=== PATIENT | female | born 1980 | race Caucasian/White ===

== ENCOUNTER 2017-09-02 08:01 | Day surgery (SDC) | payer OTHER ==
[2017-08-26 11:00] LABS: HEMATOCRIT 41.4 % (36.0-47.0); HEMOGLOBIN 14.3 g/dL (12.0-15.5); HGB HCT DIFFERENCE 1.5; MEAN CORPUSCULAR HEMOGLOBIN 30.1 pg (27.0-33.4); MEAN CORPUSCULAR HGB CONC 34.5 g/dL (32.0-36.0); MEAN CORPUSCULAR VOLUME 87 fl (80-97); RED BLOOD COUNT 4.75 10^6/uL (3.72-5.28); RED CELL DISTRIBUTION WIDTH 13.3 % (11.5-14.0); WHITE BLOOD COUNT 5.8 10^3/uL (4.0-10.5)
--- NOTE | 2017-08-26 13:00 | EKG REPORT ---
SEVERITY:- BORDERLINE ECG - SINUS RHYTHM NONSPECIFIC ST-T CHANGES- INFERIOR LEADS : Confirmed by: David Freire MD 26-Aug-2017 13:00:09
[~2017-09-02 08:01] MED LIST: CIPROFLOXACIN 400 MG/D5W RTU 400 MG/200 ML RTUPB IV PRN; LACTATED RINGERS 1000 ML IV PRN; LIDOCAINE 0.5% INJ-PF (5 MG/ML) 50 ML SDV SUBCUT PRN
[2017-09-02] MEDS ORDERED: FENTANYL CITRATE INJ/PF 100 MCG/2 ML AMPUL ONE ×2 (09:25→09:26)
[2017-09-02] MEDS ORDERED: LIDOCAINE 1% INJ-PF (10 MG/ML) 30 ML SDV ONE (09:26)
[2017-09-02] MEDS ORDERED: MIDAZOLAM 2 MG/2 ML INJ ONE (09:26)
[2017-09-02] MEDS ORDERED: PROPOFOL INJ 200 MG/20 ML VIAL IV ONE (09:26)
--- NOTE | 2017-09-02 10:49 | Operative Report ---
Operative Report DATE OF SURGERY: 09/02/17 PREOPERATIVE DIAGNOSIS: Lipoma posterior right neck POSTOPERATIVE DIAGNOSIS: Same OPERATION: Complete excision of right posterior neck lipoma SURGEON: ASIYA CASTILLO ANESTHESIA: GA TISSUE REMOVED OR ALTERED: Lipoma right posterior neck COMPLICATIONS: None ESTIMATED BLOOD LOSS: Scant INTRAOPERATIVE FINDINGS: Below PROCEDURE: The patient was seen in the preop holding area with the right posterior neck mass was marked, and hair clipped for optimal exposure. The patient was taken to the operating room and general anesthesia was induced. She is placed in the left side down right side up position with exposure to the posterior neck. Hair was taped out of the field. The posterior neck was prepped and draped in sterile fashion. Surgical plan surgical timeout were conducted. The posterior neck the skin was anesthetized with 1% plain lidocaine. Approximately 4 cm incision was made of the mass. This was dissected out in its entirety with hemostats and Vanessa clamps. Which was a lobulated lipoma. Mass was sent to pathology permanent analysis.. Wound was checked for hemostasis and managed with electro cautery. Wound closed in layers with 3-0 Vicryl benzoin Steri-Strips and a bulky dressing applied. Patient tolerated the procedure well.
--- NOTE | 2017-09-02 10:51 | PDOC DISCHARGE SUMMARY ---
Discharge Summary (SDC) - Discharge Final Diagnosis: Posterior neck lipoma Date of Surgery: 09/02/17 Discharge Date: 09/02/17 Condition: Good Treatment or Instructions: Patient to leave bulky dressing on for 48 hour. She can take pain medication as prescribed. Follow-up with [facility] in approximately 2 weeks. She may shower in 48 hours Prescriptions: Ketorolac Tromethamine [Toradol 10 mg Tablet] 10 mg PO Q6HP PRN #20 tablet PRN Reason: Referrals: BRIANDA LANTIGUA MD [Primary Care Provider] - Discharge Diet: As Tolerated Discharge Activity: Activity As Tolerated Home Care Assistance: None Needed Report the Following to Your Physician Immediately: Shortness of Breath, Increase in Pain, Fever over 101 Degrees
[2017-09-02] MEDS ORDERED: PROMETHAZINE HCL INJ 25 MG/1 ML VIAL IV PRN (11:11)
[2017-09-02] MEDS ORDERED: DIPHENHYDRAMINE HCL 50 MG/ML VIAL IV PRN (11:11)
[2017-09-02] MEDS ORDERED: MORPHINE SULFATE 10 MG/ML INJ IV PRN (11:11)
[2017-09-02] MEDS ORDERED: FENTANYL CITRATE INJ/PF 100 MCG/2 ML AMPUL IV PRN (11:11)
[2017-09-02] MEDS ORDERED: DEXAMETHASONE SOD PHOSPHATE INJ 4 MG/1 ML VIAL ONE (14:20)
[2017-09-02] MEDS ORDERED: SUCCINYLCHOLINE CHLORIDE INJ 200 MG/10 ML VIAL ONE (14:20)
[2017-09-02] MEDS ORDERED: ONDANSETRON HCL INJ/PF 4 MG/2 ML SDV ONE (14:20)
[2017-09-02] MEDS ORDERED: LIDOCAINE 2% INJ-PF (20 MG/ML) 2 ML AMPUL ONE (14:20)
[2017-09-02 14:30] VITALS: BP 120/68
== END 2017-09-02 12:55 | disposition home or self-care (01) ==
LOC: OROUT 08:01
PROVIDERS: ATTEND Surgery
PROC: 0JB40ZZ Excision of Right Neck Subcutaneous Tissue and Fascia, Open Approach (ICD-10-PCS; 2017-09-02)
PROC: 0JQ40ZZ Repair Right Neck Subcutaneous Tissue and Fascia, Open Approach (ICD-10-PCS; principal; 2017-09-02 10:15)
DX: D17.0 Benign lipomatous neoplasm of skin and subcutaneous tissue of head, face and neck (principal); E11.9 Type 2 diabetes mellitus without complications; E28.2 Polycystic ovarian syndrome; G43.909 Migraine, unspecified, not intractable, without status migrainosus; E78.00 Pure hypercholesterolemia, unspecified; Z88.0 Allergy status to penicillin; Z88.8 Allergy status to other drugs, medicaments and biological substances; Z79.84 Long term (current) use of oral hypoglycemic drugs; Z79.1 Long term (current) use of non-steroidal anti-inflammatories (NSAID)
CPT/HCPCS: 93005; 36415; 82962; 85027; 81025; 88304 ×2; 93010; 11420; J2250; J1100; J3010; J3490 ×2; J0330; J2405; J2704; J0744; 300

== ENCOUNTER 2019-03-24 18:48 | Emergency (ER) | payer OTHER ==
[2019-03-24] MEDS ORDERED: OXYCODONE-ACETAMINOPHEN 5-325 MG TABLET PO ONE (19:51)
--- NOTE | 2019-03-24 19:53 | ER Document Report ---
ED Medical Screen (RME) - General Chief Complaint: Arm Injury Stated Complaint: FELL ROLLERSKATING, ARM INJURY Time Seen by Provider: 03/24/19 19:46 Primary Care Provider: BRIANDA LANTIGUA MD [Primary Care Provider] - Follow up as needed Notes: Patient is a 38-year-old female presents to the emergency department for an injury to her left upper extremity. Patient states she was rollerskating when she fell on both elbows. States she also hit her forehead on the floor. Patient is denying any loss of consciousness or vomited. Patient is complaining of pain mostly in her left elbow but also her left wrist left distal humerus. Radial, ulnar, medial nerves intact. Swelling and pain noted left elbow. I have greeted and performed a rapid initial assessment of this patient. A comprehensive ED assessment and evaluation of the patient, analysis of test results and completion of the medical decision making process will be conducted by additional ED providers. This medical record was dictated with voice recognizing software. There may be grammatical, syntax errors that are unintended. TRAVEL OUTSIDE OF THE [place] IN LAST 30 DAYS: No - Related Data Allergies/Adverse Reactions: albuterol Allergy (Severe, Verified 03/24/19 18:49) ? 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
--- NOTE | 2019-03-24 21:01 | ER Document Report ---
Addendum entered and electronically signed by SARA YIN PA-C 03/24/19 22:09: Course - Re-evaluation Re-evalutation: 03/24/19 22:09 The sugar tong splint is on. Neurovascular check is normal. Patient ready for discharge - Vital Signs Vital signs: Temp Pulse Resp BP Pulse Ox 97.5 F 79 15 130/76 H 100 03/24/19 18:59 03/24/19 18:59 03/24/19 18:59 03/24/19 18:59 03/24/19 18:59 Original Note: ED General - General Chief Complaint: Arm Injury Stated Complaint: FELL ROLLERSKATING, ARM INJURY Time Seen by Provider: 03/24/19 19:46 Primary Care Provider: BRIANDA LANTIGUA MD [ACTIVE STAFF] - Follow up as needed Mode of Arrival: Ambulatory Information source: Patient TRAVEL OUTSIDE OF THE [place] IN LAST 30 DAYS: No - HPI Patient complains to provider of: Left upper extremity injury Onset: Just prior to arrival Onset/Duration: Sudden Quality of pain: Sharp Severity: Severe Pain Level: 5 Associated symptoms: None Exacerbated by: Denies Relieved by: Denies Similar symptoms previously: No Recently seen / treated by doctor: No Notes: 38-year-old female coming in today with left upper extremity injury. She was skating backwards at the skating rink and went to turn around to go forwards and fell hitting both knees her head and face injuring her left arm. No LOC - Related Data Allergies/Adverse Reactions: albuterol Allergy (Severe, Verified 03/24/19 18:49) ? clarithromycin Allergy (Severe, Verified 03/24/19 18:49) penicillin V potassium [From Pen-Vee K] Allergy (Mild, Verified 03/24/19 18:49) Past Medical History - General Information source: Patient - Social History Smoking Status: Unknown if Ever Smoked Family History: Reviewed & Not Pertinent Patient has suicidal ideation: No Patient has homicidal ideation: No - Past Medical History Cardiac Medical History: Denies: Hx Coronary Artery Disease, Hx Heart Attack, Hx Hypertension Pulmonary Medical History: Reports: Hx Asthma - no inhaler Denies: Hx Bronchitis, Hx COPD, Hx Pneumonia Neurological Medical History: Denies: Hx Cerebrovascular Accident, Hx Seizures Renal/ Medical History: Denies: Hx Peritoneal Dialysis Musculoskeletal Medical History: 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 No chills. EENT: No eye redness. No eye pain. No ear pain. No sore throat. Cardiovascular: No chest pain. No palpitations. Respiratory: No cough. No shortness of breath. No respiratory distress. Gastrointestinal: No abdominal pain. No nausea, vomiting, or diarrhea. Genitourinary: Atraumatic. No lesions. No pain. No discharge. Musculoskeletal: Positive for pain in the left wrist, forearm, elbow, humerus Skin: No rash or lesions. Lymphatic: No swollen lymph nodes. Neurologic: No headache. No syncope. Psychiatric: No suicidal or homicidal ideation. Physical Exam - Vital signs Vitals: Temp Pulse Resp BP Pulse Ox 97.5 F 79 15 130/76 H 100 03/24/19 18:59 03/24/19 18:59 03/24/19 18:59 03/24/19 18:59 03/24/19 18:59 - Notes Notes: General: Well-developed, well-nourished. In no acute distress. Non-toxic appearing. Cardiac: Well-perfused. Regular rate and rhythm. No murmurs, rubs, or gallops. Pulmonary: No respiratory distress. No cyanosis. Bilateral lung fiels are clear to auscultation. Abdominal: Non-distended. Non-rigid. Bowels sounds are present in all four quadrants. No guarding or rebound. HEENT: Head is atraumatic. Conjunctivae not reddened. No tearing. PERRL. EOMI. Orbits atraumatic. No periorbital swelling or erythema. Oropharynx is without erythema, swelling, or exudates. Neck: Supple. No adenopathy. No meningismus. Dermatologic: Warm with good turgor. No rash. Atraumatic. Chest: Atraumatic. No chest wall tenderness to palpation. Musculoskeletal: Left upper extremity examined. Distal radial tenderness without obvious deformity. Generalized midshaft radial and ulnar tenderness. Difficulty pronating and supinating. Difficulty flexing extending at the left elbow. No obvious bony deformities. Tenderness over the olecranon. No deformity. Distal neurovascular exam is intact Genitourinary: Examination deferred Neurologic: No gross neurologic deficits. Psychiatric: Normal mood. Course - Re-evaluation Re-evalutation: 03/24/19 21:38 Radial head fracture noted on films. No other bony abnormalities. Sugar tong splint ordered. Sling ordered. Patient's sees Dr. Renae who is the orthopedist. - Vital Signs Vital signs: Temp Pulse Resp BP Pulse Ox 97.5 F 79 15 130/76 H 100 03/24/19 18:59 03/24/19 18:59 03/24/19 18:59 03/24/19 18:59 03/24/19 18:59 Discharge - Discharge Clinical Impression: Radial head fracture, closed Qualifiers: Encounter type: initial encounter Fracture alignment: nondisplaced Laterality: left Qualified Code(s): S52.125A - Nondisplaced fracture of head of left radius, initial encounter for closed fracture Condition: Good Disposition: HOME, SELF-CARE Instructions: Radial Head Fracture ([facility]), Splint Pending Casting ([facility]), Sling to be Used ([facility]) Prescriptions: Hydrocodone/Acetaminophen [[place] 5-325 mg Tablet] 1 tab PO Q6HP PRN #15 tablet PRN Reason: Ibuprofen [Ibu] 800 mg PO Q8HP PRN #30 tablet PRN Reason: Referrals: DARREN POP MD [NO LOCAL MD] - 03/26/19
[2019-03-24] MEDS ORDERED: IBUPROFEN 800 MG TABLET PO ONE (21:03)
--- NOTE | 2019-03-24 21:11 | RADIOLOGY REPORT (SQ) ---
EXAM DESCRIPTION: RadLex: XR HUMERUS Views: 2 CLINICAL HISTORY: 38 years Female, pain COMPARISON: None. FINDINGS: Humerus is intact. Elbow joint effusion is noted. Radial head fracture is partially visualized; see elbow report. IMPRESSION: 1. Radial head fracture; see elbow report. 2. Proximal humerus is intact.
--- NOTE | 2019-03-24 21:15 | RADIOLOGY REPORT (SQ) ---
EXAM DESCRIPTION: Left elbow RadLex: XR ELBOW 3 VIEWS Views: 4 CLINICAL HISTORY: 38 years Female, pain COMPARISON: None. FINDINGS: An acute fracture of the radial head. A large fragment from the dorsal margin is displaced several millimeters dorsally, with some rotation. There is also a fracture plane extending through the medial corner of the metaphysis of the proximal radial head. Radiocapitellar alignment is maintained. Ulna is intact. Distal humerus is intact. There is a large joint effusion with hemarthrosis. IMPRESSION: 1. Acute radial head fracture
--- NOTE | 2019-03-24 21:15 | RADIOLOGY REPORT (SQ) ---
EXAM DESCRIPTION: XR FOREARM 2 VIEWS COMPLETED DATE/TME: 03/24/2019 19:51 CLINICAL HISTORY: 38 years, Female, pain COMPARISON: Elbow radiograph 03/24/2019. NUMBER OF VIEWS: Two TECHNIQUE: Two views of the LEFT forearm were obtained in AP and lateral projection. LIMITATIONS: None. FINDINGS: RIGHT indication of fracture of the radial head. No additional fracture of the forearm. The soft tissues are within normal limits. The joint spaces are preserved. IMPRESSION: Fracture of the radial head. copyright 2010 [employer]- All Rights Reserved
[2019-03-24 22:56] VITALS: BP 124/67
== END 2019-03-24 22:58 | disposition home or self-care (01) ==
LOC: ER 18:48
DX: S52.125A Nondisplaced fracture of head of left radius, initial encounter for closed fracture (principal); V00.121A Fall from non-in-line roller-skates, initial encounter; Y93.51 Activity, roller skating (inline) and skateboarding; Y92.838 Other recreation area as the place of occurrence of the external cause; Z88.0 Allergy status to penicillin; Z88.3 Allergy status to other anti-infective agents
CPT/HCPCS: 99283